=== PATIENT | female | born 1970 | race Caucasian/White ===

== ENCOUNTER 2023-10-05 11:07 | Emergency (ER) | payer OTHER ==
[~2023-10-05] VITALS: Ht 147.3 cm; Wt 79.4 kg
[2023-10-05 11:16] VITALS: TEMP 98.1
[2023-10-05 11:20] VITALS: BP 152/95; O2SAT 99
== END 2023-10-05 13:30 | disposition left against medical advice (07) ==
LOC: ER 11:12
DX: M79.601 Pain in right arm (principal); Z53.21 Procedure and treatment not carried out due to patient leaving prior to being seen by health care provider
CPT/HCPCS: 82962-TC